=== PATIENT | female | born 1950 | race Caucasian/White ===

== ENCOUNTER 2022-12-16 18:50 | Emergency (ER) | payer MEDICARE, MEDICAID, SELFPAY ==
--- NOTE | 2022-12-16 18:47 | ECG_ITS ---
APPROVED REPORT Exam: Resting ECG HR:80 bpm ECG Measurements Heart Rate 80 AXES AR 160 P 63 QRSd 83 QRS 36 QT 378 T 44 QTc 414 Conclusion SINUS RHYTHM NORMAL ECG UNCONFIRMED REPORT Electronically signed by : Dinesh Delarosa MD 12/17/2022 19:43:02
[2022-12-16 18:52] VITALS: BP 133/74; PULSE 82; RESP 23; TEMP 36.6; O2SAT 99; BMI 20.7
[2022-12-16 19:01] VITALS: PULSE 85
--- NOTE | 2022-12-16 19:09 | XR_ITS ---
PROCEDURE INFORMATION: Exam: XR Chest Exam date and time: 12/16/2022 7:09 PM Age: 72 years old Clinical indication: Sternal or substernal pain; Patient HX: Spider bite to finger. Chest pain. TECHNIQUE: Imaging protocol: Radiologic exam of the chest. Views: 1 view. COMPARISON: No relevant prior studies available. FINDINGS: Lungs: Chronic appearing interstitial markings bilaterally. No focal consolidation. Pleural spaces: Unremarkable. No pleural effusion. No pneumothorax. Heart/Mediastinum: Unremarkable. No cardiomegaly. Bones/joints: Unremarkable. IMPRESSION: No acute findings.
[2022-12-16 19:22] LABS: Chloride 103 mmol/L (98-107)
[2022-12-16 19:23] LABS: Basophils % 0.5 % (0.1-2.0); Eosinophils # 0.1 K/mm3 (0.0-0.4); Eosinophils % 1.3 % (0.1-12.0); Hematocrit 38.6 % (37.0-47.0); Hemoglobin 12.4 g/dL (12.2-16.2); Lymphocytes # 1.5 K/mm3 (0.7-4.5); Lymphocytes % 20.8 % (10-50); Mean Corpuscular HGB Conc 32.2 g/dL (31.8-35.4); Mean Corpuscular Hemoglobin 29.5 pg (27.0-31.2); Mean Corpuscular Volume 91.6 fl (81-99); Monocytes # 0.4 K/mm3 (0.1-1.0); Monocytes % 5.9 % (1.7-9.3); Neutrophils # 5.3 K/mm3 (1.8-7.8); Neutrophils % 71.5 % (37.0-80.0); Platelet Count 280 K/mm3 (142-424); Potassium 3.6 mmoL/L (3.5-5.1); Red Blood Count 4.22 M/mm3 (4.20-5.40); Red Cell Distribution Width 15.2 % (11.5-17.5); Sodium 140 mmol/L (136-145); White Blood Count 7.4 K/mm3 (4.8-10.8)
[2022-12-16 19:26] LABS: Anion Gap 14.6 mEq/L (5-15); Blood Urea Nitrogen 16 mg/dl (7-17); Calcium 10.5 mg/dl (8.4-10.2); Carbon Dioxide 26 mmol/L (22.0-30.0); Creatinine Clearance Estimated 40 mL/min (50-200); Estimated Glomerular Filt Rate 82 ml/min (>60); GFR (African American) 100 ML/MIN (>60); Glucose 125 mg/dl (74-100)
[2022-12-16 19:37] LABS: Troponin I < 0.01 ng/ml (0.00-0.034)
--- NOTE | 2022-12-16 20:31 | [facility].EDGENADL ---
Discharge Plan Disposition Patient Disposition: Home, Self-Care Condition: Good Referrals Follow up/Referrals: Saravanan Jose MD [Primary Care Provider] - See instructions Clinical Impressions Clinical Impression: Chest pain Qualifiers: Chest pain type: other chest pain Qualified Code(s): R07.89 - Other chest pain Bug bite Qualifiers: Encounter type: initial encounter Qualified Code(s): W57.XXXA - Bitten or stung by nonvenomous insect and other nonvenomous arthropods, initial encounter Instructions Patient Instructions: DI for Atypical Chest Pain Discharge ED Provider: Ruben Anguiano General Adult HPI General Chief complaint: Chest Pain Stated complaint: chest pain Time Seen by Provider: 12/16/22 20:25 Mode of Arrival: Wheelchair Source of Information: Patient Limitations: No Limitations Description of Symptoms (Recalled from ER Triage Doc. by RN): Pt c/o mid-sternal chest pain that began approx 4 hr after a suspected spider bite to the pad of middle finger to L hand. Pt also c/o anxiety and SOA. There looks to be a thin blister and a fine scratch this area as well. Denies any allergies to insects or bees. States she didn't see the spider but has lots of spiders around the door . Denies any significant heart hx. History of Present Illness HPI narrative: Patient presents for evaluation of multiple symptoms after suspected spider bite 4 hours prior to arrival. Patient reports touching doorknob and immediately felt pain on left finger, subsequently felt systemically ill, did not overtly see any bug or spider, no history of similar reactions, symptoms were acute in onset, constant, however are resolving at this time, associated symptoms include generalized weakness, lightheadedness, malaise. Patient has not had similar symptoms before. Previous therapies include trying to remove suspected stinger from finger. No injuries elsewhere. Related Data Allergies Allergy/AdvReac Type Severity Reaction Status Date / Time No Known Allergies Allergy Verified 12/16/22 19:03 [facility] Disclaimer: The information contained in this section may have been updated after the patient was seen, as this information can be updated by other users. Social History Smoking Status: Current every day smoker alcohol intake: never current occupational status: retired Travel in the last 8 weeks: None ROS Obtained: Yes Systems reviewed as appropriate & no additional complaints except as documented Physical Exam General General appearance: alert and in no apparent distress Head Head exam: atraumatic and normocephalic Eye Eye exam: Present normal appearance Neck Neck exam: Present normal inspection Chest Chest inspection: Present normal inspection and symmetric chest wall rise Respiratory Respiratory exam: Present normal lung sounds bilaterally; Absent respiratory distress Cardiovascular Cardiovascular exam: Present regular rate and normal rhythm Abdominal Exam Abdominal exam: Present soft Neurological Exam Neurological exam: Present alert and oriented X3 Psychiatric Psychiatric exam: Present normal affect and normal mood Skin Skin exam: Present warm, dry and other (Small annular lesion to left middle finger, hemostatic, no foreign body appreciated) Medical Decision Making Medical Records Medical records reviewed: Yes I reviewed the patient's medical records. [place] Inquiry Pt receiving controlled substance: No Vital Signs: 12/16/22 18:52 12/16/22 19:01 12/16/22 23:34 Temperature 97.9 F 97.9 F Temperature Source Oral Oral Pulse Rate 85 81 Pulse Rate [Right] 82 Respiratory Rate 23 18 Blood Pressure 128/73 Blood Pressure [Right Arm] 133/74 Blood Pressure Mean [Right Arm] 93 Blood Pressure Source [Right Arm] Automatic Cuff 02 Sat by Pulse Oximetry 99 Oxygen Delivery Method Room Air Lab Data Lab Results 12/16/22 18:53: WBC 7.4, RBC 4.22, Hgb 12.4, Hct 38.6, MCV 91.6, MCH 29.5, MCHC 3
[2022-12-16 21:48] LABS: Creatine Kinase 195 U/L (30-135)
[2022-12-16 21:50] LABS: Lactic Acid 0.7 mmol/L (0.7-2.1)
[2022-12-16 22:47] LABS: Troponin I < 0.01 ng/ml (0.00-0.034)
[2022-12-16 23:34] VITALS: BP 128/73; PULSE 81; RESP 18; TEMP 36.6; O2SAT 99
== END 2022-12-16 23:35 | disposition home or self-care (01) ==
PROVIDERS: Emergency Provider Emergency Medicine; PCP Family Medicine
DX: R07.89 Other chest pain (principal); S60.463A Insect bite (nonvenomous) of left middle finger, initial encounter; R06.02 Shortness of breath; F41.9 Anxiety disorder, unspecified; W57.XXXA Bitten or stung by nonvenomous insect and other nonvenomous arthropods, initial encounter; F17.200 Nicotine dependence, unspecified, uncomplicated
CPT/HCPCS: 71045; 80048; 82550; 83605; 84484; 85025; 93005; 99285